=== PATIENT | female | born 1985 ===

== ENCOUNTER 2020-02-21 05:50 | Day surgery (SDC) | payer OTHER ==
[~2020-02-21 05:50] MED LIST: BIOTIN800 MCG PO; FOLIC ACID1 MG PO; IBUPRO PO; OMEGA-31000 MG PO; YAZ 28 TABLET1 TAB PO; [UNRECOGNIZED DRUG - OTHER] PO
[2020-02-21] MEDS ORDERED: ULTRACET PO (09:03)
[2020-02-21] MEDS ORDERED: MACROBID 100 M100 MG PO (09:03)
== END 2020-02-21 11:20 | disposition home or self-care (01) ==
LOC: CIR.AMB 05:50 → ADM 07:30 → CIR.AMB 07:30
PROVIDERS: ATTEND Obstetrics & Gynecology Gynecology
DX: N39.3 Stress incontinence (female) (male) (principal)
CPT/HCPCS: 57288; C1771